=== PATIENT | female | born 1975 | race Caucasian/White ===

== ENCOUNTER 2020-04-21 14:57 | Emergency (ER) | payer BC, SELFPAY ==
--- NOTE | 2020-04-21 14:59 | ED.GENADULT ---
HPI - General Adult General Chief complaint: Upper Respiratory Infection Stated complaint: possible sinus infection Time Seen by Provider: 04/21/20 14:59 Source: patient Mode of arrival: ambulatory Limitations: no limitations History of Present Illness HPI narrative: 44-year-old female patient presents to the the medical center with complaints of left ear pain for the past 3 weeks. Patient states she was treated for an ear infection about 2 weeks ago and states that she thought that it cleared up but continues to have pain as well as discharge coming from the ear. Patient also complaining of congestion, runny nose, cough and some shortness of breath. Patient does have a history of COPD and is an active smoker. Patient states she was also diagnosed and treated for COVID-19 about 2 months ago. Patient states she is following up with for her COVID symptoms. Patient states she sees him next month. Patient denies any fevers, body aches or chills. Patient denies any abdominal pain, nausea, vomiting or diarrhea. Patient does have history of heroin abuse in which she does take Subutex. Related Data Home Medications Medication Instructions Recorded Confirmed Subutex 04/21/20 Allergies Allergy/AdvReac Type Severity Reaction Status Date / Time Penicillins Allergy Intermediate Hives / Verified 04/21/20 15:12 Red Face clarithromycin Allergy Unknown Rash Verified 04/21/20 15:12 Review of Systems Review of Systems: Narrative: CONSTITUTIONAL: Denies fever, chills, or sweats. EYES: Denies visual changes, redness, or discharge. ENT: Positive rhinorrhea, congestion, denies sore throat, positive left otalgia with brown discharge. CARDIOVASCULAR: Denies chest pain, palpitations, or edema. RESPIRATORY: Positive productive cough with dyspnea. GASTROINTESTINAL: Denies abdominal pain, nausea, vomiting, or diarrhea. GENITOURINARY: Denies dysuria or hematuria. SKIN: Denies rash or itching. MUSCULOSKELETAL: Denies back pain, joint pain, or myalgia. NEUROLOGIC: Denies headache, numbness, or weakness. PSYCHIATRIC: Denies anxiety or depression. [facility] Past Medical History Medical History (Updated 04/21/20 @ 15:21 by ANUP Goldsmith) Anxiety Bronchitis Chronic congestion of paranasal sinus COPD (chronic obstructive pulmonary disease) Fracture Surgery on right hand Substance abuse Heroin Social History Social History (Updated 04/21/20 @ 15:00 by JONO Goldsmith Smoking status: Current every day smoker Gender identity (if verbalized by the patient): Female Exam Narrative: Exam Narrative: GENERAL: ill-appearing, well-nourished, and in no acute distress. HEAD: Normocephalic, atraumatic. EYES: PERRLA and EOMI. ENT: Nares with erythema and edema noted bilaterally, no active rhinorrhea or epistaxis. Mucous membranes moist. Posterior pharynx no erythema, tonsillectomy, exudates or lesions present. The left TM does have a little bit of bulging and what appears to be some pus behind the TM. No foreign bodies to the canal at this time. NECK: Supple. No lymphadenopathy CHEST: Patient has some expiratory rhonchi noted to bilateral upper lobes.. No respiratory distress. Patient able talk in clear complete sentences. No tripoding noted. HEART: Regular rate and rhythm. No murmur heard. Normal peripheral pulses. ABDOMEN: Soft, nontender, nondistended, normal active bowel sounds. EXTREMITIES: Normal range of motion. No edema. SKIN: Warm, dry, no rash. NEURO: No focal deficits. Alert and oriented x3. Course Vital Signs Vital signs: Vital Signs Temperature 36.5 C 04/21/20 15:05 Pulse Rate 79 04/21/20 15:05 Respiratory Rate 16 04/21/20 15:05 Blood Pressure 123/73 04/21/20 15:05 Pulse Oximetry 97 04/21/20 15:05 Temperature 36.5 C 04/21/20 15:05 Pulse Rate 79 04/21/20 15:05 Respiratory Rate 16 04/21/20 15:05 Blood Pressure 123/73 04/21/20 15:05 Pulse Oximetry 97 04/21/20 15:05 Vital s
[2020-04-21 15:05] VITALS: BP 123/73; PULSE 79; RESP 16; TEMP 36.5; O2SAT 97
--- NOTE | 2020-04-21 15:19 | PC.NURSE ---
1519- Pt told [employer] ARCHITECT she was + for COVID 2 months ago
== END 2020-04-21 15:25 | disposition home or self-care (01) ==
PROVIDERS: Emergency Provider Nurse Practitioner Family
DX: H66.92 Otitis media, unspecified, left ear (principal); R05 Cough; R09.81 Nasal congestion; J30.9 Allergic rhinitis, unspecified; J44.9 Chronic obstructive pulmonary disease, unspecified; F17.200 Nicotine dependence, unspecified, uncomplicated
CPT/HCPCS: 99213; G0463

== ENCOUNTER 2020-10-20 14:28 | Emergency (ER) | payer BC, SELFPAY ==
--- NOTE | 2020-10-20 15:02 | ED.GENADULT ---
HPI - General Adult General Chief complaint: Upper Respiratory Infection Stated complaint: Sore throat,Fever Time Seen by Provider: 10/20/20 15:02 Source: patient Mode of arrival: ambulatory Limitations: no limitations History of Present Illness HPI narrative: 45-year-old female patient presents to the [facility] with complaints of cold symptoms for the past 3 days. Patient states she has had sore throat, congestion, runny nose and a slight cough. Patient states she is also had some fullness and some pain to her ears. Patient states she has had a nail go through her left ear when she was little and is constantly has symptoms and earaches in the ear. Patient is a positive smoker. Patient states has been taking [id number] DayQuil and NyQuil for her symptoms. Related Data Home Medications Medication Instructions Recorded Confirmed Subutex 04/21/20 Allergies Allergy/AdvReac Type Severity Reaction Status Date / Time Penicillins Allergy Intermediate Hives / Verified 04/21/20 15:12 Red Face clarithromycin Allergy Unknown Rash Verified 04/21/20 15:12 Review of Systems Review of Systems: Narrative: CONSTITUTIONAL: Denies fever, chills, or sweats. EYES: Denies visual changes, redness, or discharge. ENT: Positive rhinorrhea, congestion, sore throat, and bilateral otalgia. CARDIOVASCULAR: Denies chest pain, palpitations, or edema. RESPIRATORY: Positive cough, denies dyspnea. GASTROINTESTINAL: Denies abdominal pain, nausea, vomiting, or diarrhea. GENITOURINARY: Denies dysuria or hematuria. SKIN: Denies rash or itching. MUSCULOSKELETAL: Denies back pain, joint pain, or myalgia. NEUROLOGIC: Denies headache, numbness, or weakness. PSYCHIATRIC: Denies anxiety or depression. [facility] Past Medical History Medical History Anxiety Bronchitis Chronic congestion of paranasal sinus COPD (chronic obstructive pulmonary disease) Fracture Surgery on right hand Substance abuse Heroin Social History Social History Smoking status: Current every day smoker Gender identity (if verbalized by the patient): Female Comments At the time of my signature I agree with nursing past medical history, surgical, social, and family history. There is no relevant family history pertinent to the presenting complaint. Exam Narrative: Exam Narrative: GENERAL: Well-appearing, well-nourished, and in no acute distress. HEAD: Normocephalic, atraumatic. EYES: PERRLA and EOMI. ENT: Nares with erythema and edema noted bilaterally, no rhinorrhea or epistaxis. Mucous membranes moist. There is a old scar tissue and rupture noted to the left TM. Slight erythema and fluid noted behind bilateral TMs. Posterior pharynx no erythema, tonsillar edema, exudates or lesions present. NECK: Supple. No lymphadenopathy CHEST: Clear to auscultation. No respiratory distress. HEART: Regular rate and rhythm. No murmur heard. Normal peripheral pulses. ABDOMEN: Soft, nontender, nondistended, normal active bowel sounds. EXTREMITIES: Normal range of motion. No edema. SKIN: Warm, dry, no rash. NEURO: No focal deficits. Alert and oriented x3. Course Reevaluation(s) Reevaluation #1: Reevaluated patient was once her test results had come back. Notified her that she is negative for influenza rapid Covid and strep today. Discussed with them that we will send the PCR Covid and the strep swab to the lab for further evaluation. Discussed with her that if any of these come back positive we will call her and let her know. I will discharge her home with a daily antihistamine, nasal spray and Tessalon Perles for the cough. Discussed with patient that since she is waiting on Covid test results she should not be going to work and needs to remain isolated until she has received the test results when she has received the test results she needs to refer to her workplace policy be
--- NOTE | 2020-10-20 15:31 | PC.NURSE ---
1528 to 3 for evaluation.
[2020-10-20 15:42] VITALS: BP 109/66; PULSE 75; RESP 16; TEMP 36.3; O2SAT 95
[2020-10-21 18:32] LABS: SARS-CoV-2 RNA PCR Negative
== END 2020-10-20 16:20 | disposition home or self-care (01) ==
PROVIDERS: Emergency Provider Nurse Practitioner Family
DX: J06.9 Acute upper respiratory infection, unspecified (principal); J30.9 Allergic rhinitis, unspecified; Z20.822 Contact with and (suspected) exposure to COVID-19; J44.9 Chronic obstructive pulmonary disease, unspecified
CPT/HCPCS: 87081; 87426; 87804; 87880; 99213; C9803; G0463; U0003; U0005

== ENCOUNTER 2021-01-14 11:22 | Emergency (ER) | payer BC, SELFPAY ==
--- NOTE | ~2021-01-14 | XR_ITS ---
EXAMINATION: XR chest 2V 01/14/2021 12:25 INDICATION: Cough and shortness of breath PROCEDURE: 2 view chest COMPARISON: 10/22/2013 FINDINGS: The lungs are clear. The cardiomediastinal silhouette is within normal limits. There are no pleural effusions. There is no pneumothorax suspected. Calcified granuloma left lower lung zone. IMPRESSION: 1: NO ACUTE CARDIOPULMONARY DISEASE. Reviewed, dictated and finalized at location B.
--- NOTE | 2021-01-14 11:29 | ED.URI ---
HPI - URI/Sore Throat General Chief Complaint: Upper Respiratory Infection Stated Complaint: no taste/no smell/congetion/fever/diarrhea Time Seen by Provider: 01/14/21 11:34 Source: patient and RN notes reviewed Mode of arrival: ambulatory Limitations: no limitations History of Present Illness HPI Narrative: 45-year-old female presents to the [facility] with complaints of a sinus infection, fever, productive cough, loss of taste and smell for approximately 1 week. Patient reports that she was at work 3 days ago and when they were doing temperature checks on her way in was running a fever and was told she could not return to work without a negative Covid test. States that she has been having trouble finding places to do Covid tests. Related Data Home Medications Medication Instructions Recorded Confirmed Subutex 04/21/20 Allergies Allergy/AdvReac Type Severity Reaction Status Date / Time Penicillins Allergy Intermediate Hives / Verified 04/21/20 15:12 Red Face clarithromycin Allergy Unknown Rash Verified 04/21/20 15:12 Review of Systems Review of Systems: All systems reviewed & are unremarkable except as noted in HPI and below Constitutional: Constitutional: Reports as per HPI, Reports chills and Reports fever(s) Eyes: Eyes: Reports no additional eye complaints ENT: Reports as per HPI, Denies dizziness, Reports nasal congestion and Denies sore throat Cardiovascular: Cardiovascular: Reports no additional cardiovascular complaints and Denies chest pain Respiratory: Respiratory: Reports as per HPI, Reports chest congestion and Reports cough Gastrointestinal: Gastrointestinal: Reports no additional gastrointestinal complaints, Denies abdominal pain, Denies diarrhea, Denies nausea and Denies vomiting Genitourinary: Genitourinary: Reports no additional female genitourinary complaints Musculoskeletal: Musculoskeletal: Reports no additional musculoskeletal complaints Integumentary/Breasts: Skin/Breast: Reports system reviewed and no additional complaints, except as docu and Denies rash Neurologic: Reports system reviewed and no additional complaints, except as documented, Denies vertigo, Denies dizziness, Denies syncope, Denies headache(s), Denies focal weakness, Denies numbness and Denies weakness Psychiatric: Psychiatric: Reports no additional psychiatric complaints PMFSH Past Medical History Medical History Anxiety Bronchitis Chronic congestion of paranasal sinus COPD (chronic obstructive pulmonary disease) Fracture Surgery on right hand Substance abuse Heroin Social History Social History Smoking status: Current every day smoker Gender identity (if verbalized by the patient): Female Comments At the time of my signature, I reviewed and agree with the nursing past medical, surgical, social, and family history. There is no relevant family history pertinent to the patient complaint. Exam Const: General: no acute distress, alert and ill appearing acutely Nutritional Appearance: well nourished Orientation/consciousness: patient oriented x3 Limitations: no limitations HENMT: Head: normal to inspection Ears: hearing grossly normal bilaterally, external ears normal and TM's normal bilaterally General nose exam: Abnormal mucous membranes and turbinates present boggy and Nasal discharge present clear Face and sinus: normal facial exam and sinus tenderness frontal and maxillary Mouth: Yes Normal oral and palatal mucosa present, Yes lip normal, Yes tongue normal, No drooling and No muffled voice Eyes: Conjunctivae: conjunctivae normal Pupils: Equal, round and reactive pupils present Neck: Neck: normal visual inspection, no lymphadenopathy and meningismus present Chest: Chest palpation & inspection: normal inspection of the chest Resp: Effort & Inspection: normal respiratory effort and no use of a
[2021-01-14 11:30] VITALS: BP 137/76; PULSE 72; RESP 20; TEMP 36; O2SAT 94
[2021-01-16 19:50] LABS: SARS-CoV-2 RNA PCR Negative
== END 2021-01-14 12:44 | disposition home or self-care (01) ==
PROVIDERS: Emergency Provider Nurse Practitioner
DX: J06.9 Acute upper respiratory infection, unspecified (principal); Z20.822 Contact with and (suspected) exposure to COVID-19; F17.200 Nicotine dependence, unspecified, uncomplicated; J44.9 Chronic obstructive pulmonary disease, unspecified
CPT/HCPCS: 71046; 87426; 99213; C9803; G0463; U0003; U0005

== ENCOUNTER 2021-07-21 09:39 | Emergency (ER) | payer OTHER, BC, SELFPAY ==
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
[2021-07-21 09:46] VITALS: BP 131/86; PULSE 88; RESP 18; TEMP 36.5; O2SAT 100
[2021-07-21 09:50] VITALS: BP 131/86; PULSE 88; RESP 18; TEMP 36.5; O2SAT 100
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
--- NOTE | 2021-07-21 11:45 | PC.NURSE ---
Pt wanted to go to daughters room was upset and in pain, ensured pt that we will address her pain and she could go see her daughter, pt is now calm, Dr. Montero aware and provided education on her x rays, diagnosis and upcoming discharge, pt states that she understands and feels okay to be discharged
[2021-07-21] MEDS: ACETAMINOPHEN 325 MG TABLET 650 MG PO (11:54)
[2021-07-21] MEDS: IBUPROFEN 400 MG TABLET 800 MG PO (11:55)
[2021-07-21 12:12] VITALS: BP 131/64; PULSE 80; RESP 18; O2SAT 97
== END 2021-07-21 12:12 | disposition home or self-care (01) ==
PROVIDERS: Emergency Provider Emergency Medicine
DX: S60.551A Superficial foreign body of right hand, initial encounter (principal); S39.92XA Unspecified injury of lower back, initial encounter; J44.9 Chronic obstructive pulmonary disease, unspecified; F17.200 Nicotine dependence, unspecified, uncomplicated; M47.816 Spondylosis without myelopathy or radiculopathy, lumbar region; M47.814 Spondylosis without myelopathy or radiculopathy, thoracic region; V43.52XA Car driver injured in collision with other type car in traffic accident, initial encounter
CPT/HCPCS: 72072; 72100; 72125; 73130; 73562; 99284; A9270; L0140